=== PATIENT | female | born 1950 | race Caucasian/White ===

== ENCOUNTER → 2020-11-27 | Outpatient (CLI) | payer MEDICARE ==
--- NOTE | 2020-11-27 12:08 | RAD ---
INDICATION: Screening for osteopenia/osteoporosis. Postmenopausal evaluation COMPARISON: None. TECHNIQUE: Bone densitometry was performed through the lumbar spine and proximal femur. IMPRESSION: Lumbar Spine: BMD: 0.93 T-Score: -2.1 Range: Osteopenic Proximal Femur: BMD: 0.67 T-Score: -2.3 Range: Osteopenic World [employer] Organization Criteria for Bone Density: T-Score: > -1.0: Normal Range < -1.0 to -2.5: Osteopenic Range < -2.5: Osteoporotic Range Electronically signed by: Osmar Bray MD (11/27/2020 12:06 PM) [id number]
== END ==
LOC: DXRAD 11:02
PROVIDERS: ATTEND Internal Medicine Hematology & Oncology
DX: M85.89 Other specified disorders of bone density and structure, multiple sites (principal); Z79.811 Long term (current) use of aromatase inhibitors
CPT/HCPCS: 77080